=== PATIENT | male | born 1945 | race Caucasian/White ===

== ENCOUNTER 2017-04-06 16:21 | Emergency (ER) | payer OTHER ==
[2017-04-06 16:34] VITALS: BP 137/72; BMI 17.9
--- NOTE | 2017-04-06 17:53 | DR.GENAD ---
HPI - PCP Primary Care Physician: NELI CUNNINGHAM - HPI Comment HPI Comment: PATIENT HAVE BLOOD IN URINE WHEN HE URINATED BEFORE COMING TO ED. NO PAIN OR DYSURIA. DENIES TRAUMA OR FEVER. DENIES LOWER BACK PAIN. TAKES XARELTO. - Complaint/Symptoms Chief Complaint Doctors Comments: PAINLESS HEMATURIA, STARTED THIS AFTERNOON. Chief Complaint:: BLOOD IN URINE - Nurses notes reviewed Nurses Notes Review: Yes - Source History Provided: Patient - Mode of Arrival Mode of Arrival: Ambulatory - Timing Onset of Chief Complaint: 04/06/17 Came on: Suddenly - Duration Duration: Constant Duration: Hours - Severity Severity: Moderate PMH - PMH Past Medical History: Yes Past Medical History: Coronary Artery Disease, Diabetes, Dyslipidemia Past Medical History Comment: CABG 2012. ESOPHAGEAL CANCER 2012. 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 NEUROPATHY Past Surgical History: Yes Surgical History: Abdominal Surgery, CABG/Valve Surgery, Cholecystectomy - Family History History of Family Medical Conditions: Yes Family Medical History: Diabetes Mellitus, Cancer, Coronary Artery Disease - Social History Does patient currently use any type of tobacco product: No Have you used tobacco products in the last 12 months: No Type of Tobacco Use: None Does any household member use tobacco: No Alcohol Use: None Do you use any recreational Drugs:: No Lives With: Alone Lives Where: Home - infectious screening In the last 2 months have you had wt loss of >10#?: NO Have you had fever, night sweats or hemotysis?: No Have you traveled outside the country in the last 6 months?: No Isolation: Standard ROS - Review of Systems Constitutional: No Symptoms Reported Eyes: No Symptoms Reported ENTM: No Symptoms Reported Respiratoy: No Symptoms Reported Cardiovascular: No Symptoms Reported Gastrointestinal/Abdominal: No Symptoms Reported Genitourinary: Hematuria Neurological: No Symptoms Reported Musculoskeletal: No Symptoms Reported Integumentary: No Symptoms Reported Hematologic/Lymphatic: No Symptoms Reported Endocrine: No Symptoms Reported All Other Systems: Reviewed and Negative PE - Vital Signs Vitals: Temperature 99.4 F Pulse Rate 108 Respiratory Rate 20 Blood Pressure 137/72 O2 Sat by Pulse Oximetry 98 - General Limitations: No Limitations General Appearance: Alert - Head Head Exam: Normal Inspection - Eyes Eye exam: Normal Appearance - ENT ENT Exam: Normal External Ear Exam External Ear Exam: Normal External Inspection TM/Canal Exam: Bilateral Normal Nose Exam: Normal Nose Exam Mouth Exam: Normal Inspection Throat Exam: Normal Inspection - Neck Neck Exam: Trachea Midline - Respiratory Respiratory Exam: Normal Lung Sounds Bilat Respiratory Exam: Bilateral Clear to Auscultation - Cardiovascular Cardiovascular Exam: Regular Rate, Normal Rhythm, Normal Heart Sounds - Abdominal Exam Abdominal Exam: Normal Bowel Sounds, Soft. negative: Tenderness - Extremities Extremities Exam: Normal Inspection - Back Back Exam: Normal Inspection - Neurologic Neurological Exam: Alert, Oriented X3 - Psychiatric Psychiatric Exam: Normal Affect, Normal Mood - Skin Skin Exam: Normal Color. negative: Rash MDM - Additional Information Additional Information Obtained From: Family - Differential Diagnosis Differential Diagnosis: PAINLESS HEMATURIA, KIDNEY STONE, UTI, RENAL CYST. Course - Treatment Treatment: SEE ORDERS. - Education/Counseling Education/Counseling: Patient, Family, Education Educated On: Diagnosis ROR - Labs Reviewed Laboratory Results Reviewed?: Yes Result Diagrams: 04/06/17 18:19 04/06/17 18:19 Laboratory: 04/06/17 18:36 Urine,Clean Catch Urine Culture - Final WBC 9.9 X10^3/uL (3.6-10.0) 04/06/17 18:19 RBC 4.41 X10^6/uL (4.7-6.0) L 04/06/17 18:19 Hgb 11.3 g/dL (13.5-18.0) L 04/06/17 18:19 Hct 34.9 % (42.0-54.0) L 04/06/17 18:19 MCV 79.1 fL (80.0-100.0) L 04/06/17 18:19 MCH 25.7 pg (27.0-34.0) L 04/06/17 18:19 MCHC 32.5 g/dL (33.0-35.0) L 04/06/17 18:19 RDW 19.2 % (11.6-16.5) H 04/06/17 18:19 Plt Count 322 X10^3/uL (150.0-450.0) 04/06/17 18:19 Plt Count Comment Adequate (ADEQUATE) 04/06/17 18:19 MPV 6.8 fL (7.4-11.0) L 04/06/17 18:19 Neut % 74.0 % (42.0-75.0) 04/06/17 18:19 Lymph % 13.0 % (21.0-51.0) L 04/06/17 18:19 [place] % 10.5 % (0.0-13.0) 04/06/17 18:19 Eos % 2.0 % (0.9-2.9) 04/06/17 18:19 Baso % 0.5 % (0.2-1.0) 04/06/17 18:19 Neut # 7.3 x10^3/uL (2.2-4.8) H 04/06/17 18:19 Lymph # 1.3 X10^3/uL (1.3-2.9) 04/06/17 18:19 [place]ill # 1.0 x10^3/uL (0.3-0.8) H 04/06/17 18:19 Eos # 0.2 x10^3/uL (0.0-0.2) 04/06/17 18:19 Baso # 0.0 X10^3/uL (0.0-0.1) 04/06/17 18:19 Absolute Nucleated RBC 0.1 /100WBC 04/06/17 18:19 Plt Morphology Comment Normal (NORMAL) 04/06/17 18:19 RBC Morphology Abnormal (NORMAL) 04/06/17 18:19 Hypochromasia Slight A 04/06/17 18:19 Anisocytosis 1+ A 04/06/17 18:19 INR Target Range - 04/06/17 18:19 INR 1.36 (0.8-1.3) H 04/06/17 18:19 PTT 45.8 SECONDS (22.9-36.5) H 04/06/17 18:19 PTT Comment - 04/06/17 18:19 Sodium 138 mmol/L (136-145) 04/06/17 18:19 Corrected Sodium TNP 04/06/17 18:19 Potassium 3.6 mmol/L (3.5-5.1) 04/06/17 18:19 Chloride 101 mmol/L (98-107) 04/06/17 18:19 Carbon Dioxide 30.1 mmol/L (21-32) 04/06/17 18:19 BUN 13 mg/dL (7-18) 04/06/17 18:19 Creatinine 0.71 mg/dL (0.70-1.30) 04/06/17 18:19 Est GFR (MDRD) Af Amer > 60 (>60) 04/06/17 18:19 Est GFR (MDRD) Non-Af > 60 (>60) 04/06/17 18:19 Glucose 83 mg/dL (65-99) 04/06/17 18:19 Calcium 8.2 mg/dL (8.5-10.1) L 04/06/17 18:19 Corrected Calcium 8.9 mg/dL (8.5-10.1) 04/06/17 18:19 Total Bilirubin 0.20 mg/dL (0.2-1.0) 04/06/17 18:19 AST 20 Units/L (15-37) 04/06/17 18:19 ALT 10 Units/L (12-78) L 04/06/17 18:19 Alkaline Phosphatase 92 Units/L (46-116) 04/06/17 18:19 Total Protein 7.0 g/dL (6.4-8.2) 04/06/17 18:19 Albumin 3.1 g/dL (3.4-5.0) L 04/06/17 18:19 Globulin 3.9 g/dL (2.5-4.5) 04/06/17 18:19 Albumin/Globulin Ratio 0.8 Ratio (1.1-2.1) L 04/06/17 18:19 Specimen Type Clean catch urine 04/06/17 18:36 Urine Color Bloody (YELLOW) 04/06/17 18:36 Urine Appearance Turbid (CLEAR) 04/06/17 18:36 Urine pH 6.5 (5.0 - 8.0) 04/06/17 18:36 Ur Specific [place] 1.020 (1.000-1.030) 04/06/17 18:36 Urine Protein 4+ (NEGATIVE) 04/06/17 18:36 Urine Glucose (UA) Negative (NEGATIVE) 04/06/17 18:36 Urine Ketones 1+ (NEGATIVE) 04/06/17 18:36 Urine Occult Blood 5+ (NEGATIVE) 04/06/17 18:36 Urine Nitrite Negative (NEGATIVE) 04/06/17 18:36 Urine Bilirubin Negative (NEGATIVE) 04/06/17 18:36 Urine Urobilinogen 1+ (NORMAL) 04/06/17 18:36 Ur Leukocyte Esterase 2+ (NEGATIVE) 04/06/17 18:36 Urine RBC Tntc /HPF (NEGATIVE) 04/06/17 18:36 Urine WBC 20-30 /HPF (NEGATIVE) 04/06/17 18:36 Ur Squamous Epith Cells Few /HPF (NEGATIVE) 04/06/17 18:36 Urine Bacteria 1+ /HPF (NEGATIVE) 04/06/17 18:36 Ur Culture Indicated? Yes/culture set up 04/06/17 18:36 - XRAY XRAY Findings: REPORT DISCUSS WITH PATIENT. - Diagnosis Discharge Problem: Hematuria Qualifiers: Hematuria type: gross Qualified Code(s): R31.0 - Gross hematuria UTI (urinary tract infection) Qualifiers: Urinary tract infection type: site unspecified Hematuria presence: with hematuria Qualified Code(s): N39.0 - Urinary tract infection, site not specified ; R31.9 - Hematuria, unspecified; R31.9 - Hematuria, unspecified - Discharge Plan Disposition: HOME, SELF-CARE Condition: Stable Prescriptions: Ciprofloxacin HCl [CIPRO 500 MG TAB *] 500 mg PO Q12H #20 tab - Follow ups/Referrals Follow ups/Referrals: [facility],None [Primary Care Provider] - 3 days - Instructions Instructions: Hematuria, Pediatric, Urinary Tract Infection, Adult, Easy-to- Read Additional Instructions: RETURN TO ED IF WORSE. HOLD XARELTO FOR 3 DAYS
[2017-04-06 18:29] LABS: BASOPHILS % (AUTO) 0.5 % (0.2-1.0); EOSINOPHILS # (AUTO) 0.2 x10^3/uL (0.0-0.2); HEMATOCRIT 34.9 % (42.0-54.0); HEMOGLOBIN 11.3 g/dL (13.5-18.0); LYMPHOCYTES # (AUTO) 1.3 X10^3/uL (1.3-2.9); MEAN CORPUSCULAR HEMOGLOBIN 25.7 pg (27.0-34.0); MEAN CORPUSCULAR HGB CONC 32.5 g/dL (33.0-35.0); MEAN CORPUSCULAR VOLUME 79.1 fL (80.0-100.0); MEAN PLATELET VOLUME 6.8 fL (7.4-11.0); MONOCYTES % (AUTO) 10.5 % (0.0-13.0); NEUTROPHILS # (AUTO) 7.3 x10^3/uL (2.2-4.8); PLATELET COUNT 322 X10^3/uL (150.0-450.0); RED BLOOD COUNT 4.41 X10^6/uL (4.7-6.0); RED CELL DISTRIBUTION WIDTH 19.2 % (11.6-16.5); WHITE BLOOD COUNT 9.9 X10^3/uL (3.6-10.0)
--- NOTE | 2017-04-06 18:34 | CT ---
CT abdomen and pelvis without contrast Indication: Hematuria. History of esophageal cancer. Comparison: None Technique: CT images of the abdomen and pelvis were obtained without contrast. Automatic exposure con trol was utilized. Findings: There is moderate multilevel spondylosis with degenerative changes of the hips. No acute sk eletal abnormality is identified. Images through lower chest demonstrate postsurgical changes of previous [place] [employer] procedure. No susp icious mass is identified. There are nonspecific interstitial changes at the basilar right lower lobe with linear scarring versus atelectasis of the left lower lobe. No dense infiltrate or pleural effus ion. Previous cholecystectomy is noted. Within noncontrast limitations, the liver, spleen, stomach, duoden um, pancreas, and adrenals demonstrate no significant abnormality. There is a 2 mm calcification with in the left renal lower pole collecting system. Additional small bilateral renal calcifications are l ikely vascular in etiology. There is no hydronephrosis. No ureteral stones. No obvious solid renal ma ss identified, within the limitations of a noncontrast study. There is colonic diverticulosis without evidence for acute diverticulitis. No significant bowel thickening or dilatation of the lower GI tra ct is observed. The appendix is normal. The urinary bladder, prostate, and rectum are unremarkable. T here are small fat containing bilateral inguinal hernias. There is severe aortoiliac atherosclerosis with infrarenal abdominal and bilateral common iliac arter y aneurysms, status post aorto bi-iliac endo stent. The aortic aneurysm is 3.9 x 3.4 cm in maximum ax ial dimension (axial image 43). The right common iliac artery aneurysm is 2.4 cm and the left is 3.3 cm in diameter. Impression: 1. 2 mm nonobstructing left lower pole renal stone 2. No acute process identified within the abdomen or pelvis, within noncontrast limitations. 3. Severe atherosclerosis with infrarenal aortic and bilateral common iliac artery aneurysms as above , status post endostenting. 4. Nonspecific interstitial thickening of the right lung base, most suggestive for chronic interstiti al disease or subsegmental atelectasis. 5. Previous esophagectomy, diverticulosis, and other findings as above. Reported By:
[2017-04-06 18:42] LABS: ALANINE AMINOTRANSFERASE 10 Units/L (12-78); ALBUMIN 3.1 g/dL (3.4-5.0); ALKALINE PHOSPHATASE 92 Units/L (46-116); ASPARTATE AMINO TRANSFERASE 20 Units/L (15-37); BLOOD UREA NITROGEN 13 mg/dL (7-18); CALCIUM 8.2 mg/dL (8.5-10.1); CARBON DIOXIDE 30.1 mmol/L (21-32); CHLORIDE 101 mmol/L (98-107); COR CA(FOR HYPOALB) 8.9 mg/dL (8.5-10.1); CREATININE 0.71 mg/dL (0.70-1.30); SODIUM 138 mmol/L (136-145); eGFR BLACK RACES > 60 (>60); eGFR NON BLACK RACES > 60 (>60)
[2017-04-06 18:43] LABS: BILIRUBIN,URINE NEGATIVE (NEGATIVE); BLOOD/HEMOGLOBIN,URINE 5+ (NEGATIVE); GLUCOSE, URINE NEGATIVE (NEGATIVE); KETONES,URINE 1+ (NEGATIVE); LEUKOCYTE ESTERASE ,URINE 2+ (NEGATIVE); NITRITES,URINE NEGATIVE (NEGATIVE); PH,URINE 6.5 (5.0 - 8.0); PROTEIN,URINE 4+ (NEGATIVE); UROBILINOGEN,URINE 1+ (NORMAL)
[2017-04-06 18:46] LABS: ANISOCYTOSIS 1+; HYPOCHROMASIA SLIGHT; PLATELET MORPHOLOGY COMMENT NORMAL (NORMAL)
[2017-04-06 18:55] LABS: COLOR,URINE BLOODY (YELLOW)
[2017-04-06 18:56] LABS: APPEARANCE,URINE TURBID (CLEAR); BACTERIA,URINE 1+ /HPF (NEGATIVE); RBC,URINE TNTC /HPF (NEGATIVE); SQUAMOUS EPITHELIAL CELL,UR FEW /HPF (NEGATIVE)
[2017-04-06] MEDS ORDERED: ROCEPHIN VIAL 1 GM IM ONE (20:06)
[2017-04-06] MEDS ORDERED: ROCEPHIN VIAL 1 GM ONE (20:13)
== END 2017-04-06 20:38 | disposition home or self-care (01) ==
LOC: ER 16:40
DX: N39.0 Urinary tract infection, site not specified (principal); R31.0 Gross hematuria; R79.1 Abnormal coagulation profile
CPT/HCPCS: 36415; 74176; 80053; 81001; 85025; 85610; 85730; 87086; 96372; 99283; 99284; J0696